=== PATIENT | male | born 1955 | race African-American/Black ===

== ENCOUNTER 2022-04-24 20:32 | Inpatient (IN) | payer BC, MEDICAID ==
[~2022-04-24] VITALS: Ht 154.9 cm; Wt 54.4 kg
[2022-04-25 00:47] LABS: HEMATOCRIT. 22.5 % (42.0-52.0); MEAN CORPUSCULAR HEMOGLOBIN 23.4 pg (28.0-32.0); MEAN CORPUSCULAR VOLUME 77.5 fL (80.0-94.0); MEAN PLATELET VOLUME 6.2 fl (7.4-10.4); PLATELET 261 x1000/uL (130-400); RED BLOOD CELL COUNT 2.91 mill/uL (4.7-6.1); RED CELL DISTRIBUTION WIDTH 22.5 % (11.6-14.6)
[2022-04-25 00:52] LABS: HEMOGLOBIN. 6.8 g/dL (14.0-18.0)
[2022-04-25 00:58] LABS: CHLORIDE 102 mEq/L (98-107)
[2022-04-25 01:18] LABS: PROTHROMBIN TIME 10.7 sec (9.6-11.0)
[2022-04-25 03:51] LABS: PLATELET ESTIMATE NORMAL
[2022-04-25] MEDS ORDERED: NA PHOS,M-B/NA PHOS,DI-BA ENEMA 118ML PR SCH (08:15)
[2022-04-25 08:31] LABS: CLARITY URINE CLEAR (CLEAR); COLOR URINE YELLOW (YELLOW); KETONES URINE NEGATIVE (NEGATIVE); LEUKOCYTE ESTERASE URINE NEGATIVE (NEGATIVE); NITRITE URINE NEGATIVE (NEGATIVE); OCCULT BLOOD URINE NEGATIVE (NEGATIVE); PROTEIN URINE NEGATIVE (NEGATIVE); SPECIFIC GRAVITY URINE 1.018 (1.005-1.030)
[2022-04-25] MEDS ORDERED: ACETAMINOPHEN 325MG TABLET PO PRN (08:45)
[2022-04-25] MEDS ORDERED: ONDANSETRON HCL 4MG/2ML INJ IV PRN (08:45)
[2022-04-25 09:20] LABS: HEMATOCRIT 28.7 % (42.0-52.0); HEMOGLOBIN 8.9 g/dL (14.0-18.0)
[2022-04-25 09:40] VITALS: BP 145/64
[2022-04-25 12:00] VITALS: BP 128/78
[2022-04-25] MEDS ORDERED: INFLUENZA VACCINE IM ONE (14:15)
[2022-04-25] MEDS ORDERED: PNEUMOCOCCAL VACCINE IM ONE (14:15)
[2022-04-25 16:00] VITALS: BP 121/64
[2022-04-25 17:07] LABS: TOTAL IRON BINDING CAPACITY 400 ug/dL (250-450)
[2022-04-25 20:53] VITALS: BP 128/52
[2022-04-25] MEDS ORDERED: SORBITOL 70% SOLN 30ML PO SCH (21:00)
[2022-04-25] MEDS: NA PHOS,M-B/NA PHOS,DI-BA ENEMA 118ML PR SCH ×2 (21:00→23:13)
[2022-04-26] VITALS: BP 125/53
[2022-04-26 04:00] VITALS: BP 116/47
[2022-04-26] MEDS ORDERED: SORBITOL 70% SOLN 30ML PO SCH (06:00)
[2022-04-26 08:00] VITALS: BP 128/53
[2022-04-26] MEDS ORDERED: NA PHOS,M-B/NA PHOS,DI-BA ENEMA 118ML PR SCH (08:15)
[2022-04-26] MEDS ORDERED: PANTOPRAZOLE SODIUM 40 MG/VIAL IV SCH (09:00)
[2022-04-26] MEDS ORDERED: IOHEXOL-300 100 ML BOTTLE ONE ×2 (09:16→10:47)
[2022-04-26] MEDS ORDERED: INFLUENZA VACCINE IM ONE (10:00)
[2022-04-26] MEDS ORDERED: MORPHINE SULFATE 2 MG/ML CPJ (NOT FOR IM USE) IV PRN (10:00)
[2022-04-26] MEDS ORDERED: PNEUMOCOCCAL VACCINE IM ONE (10:00)
[2022-04-26 10:13] LABS: BASOPHILS % 0.5 % (0.0-2.0); EOSINOPHILS % 2.8 % (0.0-5.0); HEMATOCRIT. 31.3 % (42.0-52.0); HEMOGLOBIN. 9.7 g/dL (14.0-18.0); LYMPHOCYTES % 17.9 % (20.0-50.0); MEAN CORPUSCULAR VOLUME 80.7 fL (80.0-94.0); NEUTROPHILS % 69.8 % (40.0-76.0); PLATELET 254 x1000/uL (130-400); RED BLOOD CELL COUNT 3.88 mill/uL (4.7-6.1); RED CELL DISTRIBUTION WIDTH 21.8 % (11.6-14.6)
[2022-04-26] MEDS ORDERED: NALOXONE HCL 0.4MG/ML VIAL IV PRN (10:15)
[2022-04-26 10:22] LABS: PROTHROMBIN TIME 10.9 sec (9.6-11.0)
[2022-04-26 10:31] LABS: CHLORIDE 105 mEq/L (98-107)
[2022-04-26] MEDS ORDERED: PROPOFOL 200MG/20ML VIAL IV ONE (11:38)
[2022-04-26] MEDS ORDERED: MIDAZOLAM HCL 2 MG/2 ML VIAL ONE (11:39)
[2022-04-26] MEDS ORDERED: FENTANYL CITRATE/PF 50MCG/ML 2ML VIAL ONE (11:55)
[2022-04-26] MEDS ORDERED: ONDANSETRON HCL 4MG/2ML INJ ONE (11:57)
[2022-04-26] MEDS ORDERED: DEXAMETHASONE 4MG/ML 1ML VIAL ONE (11:57)
[2022-04-26 12:58] LABS: *AMPHETAMINES SCREEN URINE NEGATIVE (NEGATIVE); *BARBITURATES SCREEN URINE NEGATIVE (NEGATIVE); *BENZODIAZEPINES SCREEN URINE NEGATIVE (NEGATIVE); *COCAINE SCREEN URINE NEGATIVE (NEGATIVE); CANNABINOID URINE SCREEN NEGATIVE (NEGATIVE); METHADONE URINE SCREEN NEGATIVE (NEGATIVE); OPIATES URINE SCREEN NEGATIVE (NEGATIVE); PHENCYCLIDINE URINE SCREEN NEGATIVE (NEGATIVE)
[2022-04-26] MEDS ORDERED: OMEP40CA20 MT (13:54)
[2022-04-26 14:00] VITALS: BP 159/57
[2022-04-26 15:42] VITALS: BP 159/57
[2022-04-26 16:00] VITALS: BP 148/65
[2022-04-26 16:22] LABS: HEMATOCRIT 33.5 % (42.0-52.0); HEMOGLOBIN 9.9 g/dL (14.0-18.0); MEAN CORPUSCULAR HEMOGLOBIN 24.7 pg (28.0-32.0); MEAN CORPUSCULAR VOLUME 83.4 fL (80.0-94.0); PLATELET 296 x1000/uL (130-400); RED BLOOD CELL COUNT 4.02 mill/uL (4.7-6.1); RED CELL DISTRIBUTION WIDTH 21.9 % (11.6-14.6)
[2022-04-26 16:33] LABS: CHLORIDE 102 mEq/L (98-107)
[2022-04-26 16:56] LABS: PROSTRATE SPECIFIC AG TOTAL 18.03 ng/mL (0.0-4.0)
[2022-04-26 17:07] LABS: HEPATITIS B SURFACE ANTIGEN NEGATIVE
== END 2022-04-26 16:25 | disposition home or self-care (01) | DRG 812 ==
LOC: ER 20:32 → MICUSO 04-25 01:41 → 8WST 04-25 10:01
PROVIDERS: ADMIT Internal Medicine; ATTEND Internal Medicine
PROC: 30233N1 Transfusion of Nonautologous Red Blood Cells into Peripheral Vein, Percutaneous Approach (ICD-10-PCS; principal; 2022-04-25)
PROC: 0DB58ZX Excision of Esophagus, Via Natural or Artificial Opening Endoscopic, Diagnostic (ICD-10-PCS; 2022-04-26)
PROC: 0DB78ZX Excision of Stomach, Pylorus, Via Natural or Artificial Opening Endoscopic, Diagnostic (ICD-10-PCS; 2022-04-26)
PROC: 0DJD8ZZ Inspection of Lower Intestinal Tract, Via Natural or Artificial Opening Endoscopic (ICD-10-PCS; 2022-04-26)
DX: D50.9 Iron deficiency anemia, unspecified (principal); E87.20 Acidosis, unspecified; K29.70 Gastritis, unspecified, without bleeding; I10 Essential (primary) hypertension; Z20.822 Contact with and (suspected) exposure to COVID-19; K64.8 Other hemorrhoids; F17.210 Nicotine dependence, cigarettes, uncomplicated; K44.9 Diaphragmatic hernia without obstruction or gangrene; M19.90 Unspecified osteoarthritis, unspecified site; G89.29 Other chronic pain; N40.0 Benign prostatic hyperplasia without lower urinary tract symptoms; J44.9 Chronic obstructive pulmonary disease, unspecified; K83.8 Other specified diseases of biliary tract; Z59.00 Homelessness unspecified
CPT/HCPCS: 36415; 71045; 74177; 76700; 80053; 80305; 81003; 82270; 82607; 82728; 82746; 83540; 83550; 83605; 84153; 84484; 85014; 85018; 85025; 85027; 85044; 86705; 86709; 86803; 86850; 86900; 86920; 87340; 87426; 88305; 88312; 88313; 90686; 90732; 99285; A6261; C9113; J1100; J2250; J2270; J2405; J2704; J3010; P9016; Q9967; G0103